=== PATIENT | female | born 1935 | race Caucasian/White ===

== ENCOUNTER 2017-01-09 23:27 | Inpatient (IN) | payer MEDICARE, OTHER ==
--- NOTE | ~2017-01-09 | HP ---
History And Physical [place] [id number] [facility] [place]. [address] NAME: RADHA ROOT : 37 STATUS : REG ER PAT#: [id number] AGE: 81 ADM/REG DATE : 01/09/17 MR#: [id number] REPORT SERV DATE: 01/10/17 DICTATED BY: LUCERO SEGOVIA DATE: 01/10/17 REPORT STATUS : Draft TRANSCRIBED BY: MODBandar DATE: 01/10/17 DATE OF ADMISSION: 01/09/2017 POINT OF ENTRY: [facility] Emergency Department CHIEF COMPLAINT: Anorexia and weakness. HISTORY OF PRESENT ILLNESS: The patient is a 81-year-old female with history of COPD on chronic 2 L by nasal cannula, as well as hypertension, gastroesophageal reflux disease, and chronic kidney stage 3, who is brought to the emergency room today by her family members given concern for anorexia, poor appetite, and resulting weakness. Majority of history is obtained from the patient's family members, as the patient currently reports that she has no complaints. The patient lives alone and family states they try to check on her at least on a daily basis by calling her. The last few days, they have been unable to reach her by phone so they decided to check on her in person this evening. When they checked on her they found her in her chair and so weak that she was unable to get out of her chair without assistance from her family members. They are very concerned that she has not been compliant with her medications and possibly even her home oxygen, as she has not been eating or drinking well at home. The patient did admit to her family members for the past few days. She has been having such difficulties with weakness that she has been having to crawl up and down the 3 small steps that are in her residence. When I directly asked patient if she had any complaints she denies any fevers, night sweats, chills, chest pain, changes in baseline, shortness of breath, or sputum production, abdominal pain, nausea, vomiting, diarrhea, constipation, dysphagia, melena, hematochezia or hemoptysis. She does endorse a poor appetite and is just not hungry. When asked specifically she denies any these are the reasons, as to why she is not eating much other than just a poor appetite, and not feeling hungry. She does endorse the weakness that the family is concerned about, but denies any other complaints. Initial evaluation in the emergency department for vital signs that are otherwise stable. ABG showed a well compensated chronic hypercarbic and hypoxic respiratory failure. Labs otherwise unremarkable, as well as a chest x-ray. She is subsequently admitted to the Hospital Service for further evaluation and management. REVIEW OF SYSTEMS: Comprehensive system otherwise negative unless listed in history of present illness. The family states that the patient has been very reluctant to move in with family members for increased assistance they report that they have been trying to address this issue for quite some time, but the patient has been reluctant. PREVIOUS MEDICAL HISTORY: 1. COPD, on chronic 2 L by nasal cannula. 2. Chronic hypoxic and hypercarbic respiratory failure. History And Physical [address] [address] NAME: RADHA ROOT : 37 STATUS : REG ER PAT#: [id number] AGE: 81 ADM/REG DATE : 01/09/17 MR#: [id number] REPORT SERV DATE: 01/10/17 DICTATED BY: LUCERO SEGOVIA DATE: 01/10/17 REPORT STATUS : Draft TRANSCRIBED BY: GUANAKITO DATE: 01/10/17 3. Gastroesophageal reflux disease. 4. Hypertension. 5. Chronic kidney stage 3. 6. Remote history of pericardial and pleural effusion. 7. Medication noncompliance. SURGICAL HISTORY: 1. Cholecystectomy. 2. Abdominal hysterectomy. 3. Pleural pericardial window for recurrent pericardial effusion. ALLERGIES: ACETAMINOPHEN, PROPOXYPHENE, AND METHADONE. HOME MEDICATIONS: The patient reports she takes no home medications. Although, family states that she has been prescribed medications in the past. She is noncompliant with them. SOCIAL HISTORY: She denies any tobacco, alcohol, or illicits. She is a former smoker, quit about 10 years ago. She currently lives alone and has been very reluctant to relinquish this independence. FAMILY MEDICAL HISTORY: Parents history is unknown. The family does report that some of her siblings are now diabetic and advanced years. LABS AND IMAGING: White count 6.9, hemoglobin 13.4, hematocrit 41.6, platelet count 308. Sodium is 139, potassium 4.7, chloride 91, carbon dioxide 39, BUN 25, creatinine 1.30, glucose is 129, calcium is 9.2, protein 7.6, albumin is 3.9, bilirubin is 0.9, ALT 12, AST 19, and alkaline phosphatase is 91. Troponin 0.02. Lactic acid 0.8. BNP is 463. Urinalysis, spec gravity is 1.021, trace ketones with small leukocyte esterase with 5 red blood cells and 5 white blood cells per high-powered field. ABG; pH is 7.35, pCO2 71, P02 is 67, bicarb is 38 saturating 91% on 2 L by nasal cannula. Chest x-ray per my review shows some mild intravascular volume overload with cardiomegaly, but otherwise no focal consolidation or infiltrate. PHYSICAL EXAMINATION: VITAL SIGNS: Temperature is 98.9 degrees Fahrenheit, pulse is 105, respirations 20 saturating 95% on 2L by nasal cannula. Blood pressure 147/69. GENERAL: Patient is awake, alert, in no acute distress. Resting comfortably in bed. She is an elderly chronically ill appearing female. Family is at bedside. HEENT: Atraumatic and normocephalic. Moist mucous membranes. Pupils equal, round, reactive to light and accommodation. Extraocular eye movements intact. No scleral icterus. NECK: Jugular venous distention. No carotid bruits. CARDIAC: Tachycardic rate, regular rhythm. No murmurs or gallops. Normal S1, S2. LUNGS: Decreased breath sounds in the bases and prolonged respiratory phase throughout, but otherwise no wheezes, rhonchi, or crackles appreciated. ABDOMEN: Soft, nontender, nondistended. Good bowel sounds. No rebound, guarding, or rigidity. History And Physical [address] [address] NAME: RADHA ROOT : 37 STATUS : REG ER PAT#: [id number] AGE: 81 ADM/REG DATE : 01/09/17 MR#: [id number] REPORT SERV DATE: 01/10/17 DICTATED BY: LUCERO SEGOVIA DATE: 01/10/17 REPORT STATUS : Draft TRANSCRIBED BY: GUANAKITO DATE: 01/10/17 EXTREMITIES: Warm and perfused with trace pedal edema. SKIN: Warm and dry. PSYCH: Affect appropriate. NEURO: Alert, oriented x3. Cranial nerves 2 through 12 grossly intact. Speech is normal. Gait is not assessed. The patient has diffuse global weakness with approximately 4/5 strength in all extremities. ASSESSMENT AND PLAN: The patient is a 81-year-old female, who is brought to the emergency department by her family for concerns of medication noncompliance, poor appetite, poor oral intake, and resulting weakness with failure to thrive. PROBLEM LIST: 1. Weakness with failure to thrive. 2. Anorexia. 3. Chronic hypoxic and hypercarbic respiratory failure. 4. COPD on 2 L by nasal cannula. 5. Chronic kidney stage 3. 6. Medication noncompliance. PLAN: 1. Weakness and failure to thrive. This is likely multifactorial from the patient's advancing age, multiple underlying medical comorbidities, as well as recent poor oral intake. We will admit patient to Hospitalist Service, consult Physical Therapy, nutrition as well as Case Management and social work, as I suspect the patient will likely need some type of detention placement in the future. Family states that they are trying to make arrangements for patient to move in with one of them and it appears that the patient is now becoming more receptive to this idea. We will check other potential etiologies of weakness such as thyroid function studies, CPK, prealbumin level. The patient received some IV fluids here in the ER, but we will hold off on further IV fluids given concern for some mild intravascular volume overload on exam as well as chest x-ray. 2. COPD, she appears to be well compensated. No acute exacerbation at this time. We will place her on some p.r.n. DuoNeb. 3. Chronic hypercarbic and hypoxic respiratory failure. Again per ABG appears to be well compensated. Place on DuoNeb as well as her home 2 L of nasal cannula. 4. Chronic kidney stage 3, per review of [facility] records her creatinine appears to be within recent baseline. Continue to monitor. 5. Mild intravascular volume overload. The patient does have some lower extremity edema as well as some vascular overload on chest x-ray and mildly elevated BNP level. She denies any history of congestive heart failure. The patient currently is in no distress. Therefore hold off on any diuretics at this time. 6. DVT prophylaxis, Lovenox subcu. 7. Code status, the patient wished to be full code. RAMYA/TREYL Lucero Hendrickson History And Physical [address] [place]. [address] NAME: RADHA ROOT : 37 STATUS : REG ER PAT#: [id number] AGE: 81 ADM/REG DATE : 01/09/17 MR#: [id number] REPORT SERV DATE: 01/10/17 DICTATED BY: LUCERO SEGOVIA DATE: 01/10/17 REPORT STATUS : Draft TRANSCRIBED BY: MODL DATE: 01/10/17 MD Jamila / [id number] CC: David Gongora M.D.
--- NOTE | ~2017-01-09 | DS ---
Discharge Summary [facility] [address] [place]. [address] NAME: RADHA ROOT : 37 STATUS : DIS IN PAT#: [id number] AGE: 81 ADM/REG DATE : 01/10/17 MR#: [id number] REPORT SERV DATE: 01/12/17 DICTATED BY: LUCERO MACIAS II DATE: 01/11/17 REPORT STATUS : Draft TRANSCRIBED BY: MODBandar DATE: 01/11/17 ADMISSION DATE: 01/10/2017 DISCHARGE DATE: 01/11/2017 DISCHARGE DIAGNOSES: 1. Generalized weakness and deconditioning. 2. Chronic hypoxic and hypercapnic respiratory failure. 3. Chronic obstructive pulmonary disease. 4. Acute on chronic diastolic congestive heart failure though mild. 5. Chronic kidney disease stage 3. 6. Medication noncompliance. 7. History of gastroesophageal reflux disease. 8. History of hypertension. BRIEF HISTORY OF PRESENT ILLNESS: The patient is a 81-year-old female with the above history who presented to [facility] due to anorexia and weakness. For detailed history and physical examination, please see Dr. Marino's note from 01/09/2017. HOSPITAL COURSE: On admission, the patient's labs were fairly unremarkable. Her creatinine was mildly elevated at 1.3 though she has CKD, reportedly stage III, however, after repeating this had come down to 0.98. The family is also concerned about malnutrition and anorexia. Currently, the patient is tolerating diet okay. She seems to be quite stubborn and refuses all medicines. Her family corroborates this and acknowledges she will not take any medicines. Her pre-albumin was 11.7, so she likely has some degree of moderate protein calorie malnutrition though her albumin is normal and no evidence of cachexia. Currently, she is in good spirits and was evaluated by PT, ambulated well without difficulty, and Physical Therapy did not think she would qualify for rehab. She is stable on 2 L nasal cannula, and her lungs are clear. She did have some edema on admission with elevated BNP of about 400. An echocardiogram showed mild diastolic dysfunction, otherwise preserved EF of 50% to 55% and some mild pulmonary tricuspid valve regurgitation. No Lasix was given. Her edema resolved. Currently, she is sitting in a chair without nasal cannula and no evidence of dyspnea. At this point, her daughter wants to take her home. The patient agrees. Daughter is a [employer]STRU[employer] and thinks she can handle her. Otherwise, no discharge medications though they were offered, and it was recommended the patient followup with her primary care physician though the daughter seems to doubt she will. GLENN/GUANAKITO Lucero Macias II, MD / [id number] CC: Discharge Summary [address] [address] NAME: RADHA ROOT : 37 STATUS : DIS IN PAT#: [id number] AGE: 81 ADM/REG DATE : 01/10/17 MR#: [id number] REPORT SERV DATE: 01/12/17 DICTATED BY: LUCERO MACIAS II DATE: 01/11/17 REPORT STATUS : Draft TRANSCRIBED BY: GUANAKITO DATE: 01/11/17 MD David Corbett II, M.D.
[2017-01-10 00:07] LABS: BASOPHILS 0.3 %; BASOPHILS ABSOLUTE 0.02 10/3/uL (0.0-0.16); EOSINOPHILS 0.1 %; EOSINOPHILS ABSOLUTE 0.01 10/3/uL (0.0-0.53); ER CBC TAT 0 Hrs 08 MinsNP; HEMATOCRIT 41.6 % (36.0-48.0); HEMOGLOBIN 13.4 g/dL (12.0-16.0); IMMATURE GRANULOCYTES 0.3 %; IMMATURE GRANULOCYTES ABSOLUTE 0.02 10/3/uL (0.0-0.11); LYMPHOCYTES 11.9 %; LYMPHOCYTES ABSOLUTE 0.82 10/3/uL (0.67-4.30); MANUAL DIFF NO %; MEAN CORPUS HGB CONC 32.2 g/dL (32.0-36.0); MEAN CORPUSCULAR VOLUME 99.3 fL (80-100); MEAN PLATELET VOLUME 9.3 fL (9.2-13.0); MONOCYTES 5.8 %; NEUTROPHILS 81.6 %; PLATELET COUNT 208 10/3/uL (150-400); RBC DISTRIBUTION WIDTH 13.2 % (12.0-16.0); RED CELL COUNT 4.19 10/6/uL (4.0-5.6); WHITE BLOOD CELLS 6.9 10/3/uL (4.5-10.5)
[2017-01-10 00:59] LABS: A/G RATIO 1.1 (0.7-1.9); ALBUMIN 3.9 G/DL (3.5-5.0); ALKALINE PHOSPHATASE 91 U/L (45-117); BUN (BLOOD UREA NITROGEN) 25 MG/DL (6-23); CALCIUM, SERUM 9.2 MG/DL (8.5-10.4); CHLORIDE, SERUM 91 MMOL/L (96-112); CO2 (CARBON DIOXIDE) 39 MMOL/L (24-34); GFR AFRICAN AMERICAN 45 ML/MIN (>=60); GFR NON AFRICAN AMERICAN 39 ML/MIN (>=60); GLOBULIN 3.7 G/DL (2.5-4.1); GLUCOSE, SERUM 129 MG/DL (60-99); POTASSIUM, SERUM 4.7 MMOL/L (3.5-5.3); SGOT(AST) 19 U/L (5-40); SGPT(ALT) 12 U/L (5-65); SODIUM, SERUM 139 MMOL/L (135-148); TOTAL BILIRUBIN 0.9 MG/DL (0-1.2); TOTAL PROTEIN 7.6 G/DL (6.0-8.5)
[2017-01-10 01:17] LABS: TROPONIN I 0.02 NG/ML (<0.05)
[2017-01-10 01:27] LABS: ALLENS TEST Pos; BE (BASE EXCESS) 10.2 MEQ/L (0 +/- 2.5); DEVICE NC; HCO3 (ACTUAL BICARBONATE) 38.4 MEQ/L (23-27); HEMOBLOGIN CONTENT 12.4 G/DL (12-16); INSTRUMENT SERIAL # 8087; METHEMOGLOBIN 0.2 % (0-3); O2 CONTENT 15.5 VOL% (18-24); OPERATOR ID 32193; PCO2 (CO2 TENSION) 71 MMHG (35-45); PO2 (O2 TENSION) 67 MMHG (79-93); SAMPLE Arterial; pH 7.35 (7.37-7.43)
[2017-01-10 01:53] LABS: LACTATE 0.8 MMOL/L (0.3-2.4)
[2017-01-10 04:21] LABS: ASCORBIC ACID (UR NOT ORDER) NEG (NEG); BILIRUBIN, URINE NEGATIVE (NEG); ER URINALYSIS TAT 0 Hrs 00 Mins; KETONE, URINE TRACE MG/DL (NEG); LEUKOCYTE ESTERASE(NOT OR SMALL (NEG); NITRITE (URINE) NEG (NEG); WBC (NOT ORDERED) (RFLEX) 5 (0-5)
[2017-01-10 11:32] LABS: FREE T4 0.96 NG/DL (0.76-1.46); PHOSPHORUS, SERUM 3.2 MG/DL (2.5-4.5); ULTRASENSITIVE TSH 0.416 MCIU/ML (0.358-3.740)
[2017-01-10 11:50] LABS: PREALBUMIN 11.7 MG/DL (17.0-43.0)
[2017-01-11 08:11] LABS: BASOPHILS 0.3 %; BASOPHILS ABSOLUTE 0.02 10/3/uL (0.0-0.16); EOSINOPHILS 2.4 %; EOSINOPHILS ABSOLUTE 0.16 10/3/uL (0.0-0.53); HEMATOCRIT 38.3 % (36.0-48.0); HEMOGLOBIN 12.1 g/dL (12.0-16.0); IMMATURE GRANULOCYTES 0.2 %; IMMATURE GRANULOCYTES ABSOLUTE 0.01 10/3/uL (0.0-0.11); LYMPHOCYTES 21.7 %; LYMPHOCYTES ABSOLUTE 1.43 10/3/uL (0.67-4.30); MEAN CORPUS HGB CONC 31.6 g/dL (32.0-36.0); MEAN CORPUSCULAR HEMOGLOB 31.6 pg (26.0-34.0); MEAN PLATELET VOLUME 8.9 fL (9.2-13.0); MONOCYTES 9.2 %; MONOCYTES ABSOLUTE 0.61 10/3/uL (0.21-1.20); NEUTROPHILS 66.2 %; NEUTROPHILS ABSOLUTE 4.37 10/3/uL (2.02-8.40); PLATELET COUNT 175 10/3/uL (150-400); RBC DISTRIBUTION WIDTH 13.1 % (12.0-16.0); RED CELL COUNT 3.83 10/6/uL (4.0-5.6); WHITE BLOOD CELLS 6.6 10/3/uL (4.5-10.5)
[2017-01-11 08:16] LABS: MANUAL DIFF NO %
[2017-01-11 08:29] LABS: BUN (BLOOD UREA NITROGEN) 24 MG/DL (6-23); CALCIUM, SERUM 8.9 MG/DL (8.5-10.4); CHLORIDE, SERUM 96 MMOL/L (96-112); CO2 (CARBON DIOXIDE) 38 MMOL/L (24-34); CREATININE 0.98 MG/DL (0.55-1.02); GFR AFRICAN AMERICAN 64 ML/MIN (>=60); GFR NON AFRICAN AMERICAN 55 ML/MIN (>=60); GLUCOSE, SERUM 89 MG/DL (60-99); POTASSIUM, SERUM 4.1 MMOL/L (3.5-5.3); SODIUM, SERUM 140 MMOL/L (135-148)
== END 2017-01-11 20:42 | disposition home health service (06) | DRG 640 ==
LOC: ER 23:27 → 4SO 01-10 06:05
PROVIDERS: Internal Medicine; Specialist
DX: E44.0 Moderate protein-calorie malnutrition (principal); I50.33 Acute on chronic diastolic (congestive) heart failure; J96.11 Chronic respiratory failure with hypoxia; Z99.81 Dependence on supplemental oxygen; J96.12 Chronic respiratory failure with hypercapnia; I12.9 Hypertensive chronic kidney disease with stage 1 through stage 4 chronic kidney disease, or unspecified chronic kidney disease; N18.3 Chronic kidney disease, stage 3 (moderate); K21.9 Gastro-esophageal reflux disease without esophagitis; R53.1 Weakness; Z88.8 Allergy status to other drugs, medicaments and biological substances; Z87.891 Personal history of nicotine dependence; Z91.14 Patient's other noncompliance with medication regimen; R62.7 Adult failure to thrive; Z68.20 Body mass index [BMI] 20.0-20.9, adult; J44.9 Chronic obstructive pulmonary disease, unspecified; E87.79 Other fluid overload
CPT/HCPCS: 36600; 71010; 80048; 80053; 81001; 82550; 82570; 82805; 83605; 83735; 83880; 83935; 84100; 84134; 84300; 84439; 84443; 84484; 85025; 87040; 87086; 93005; 93306; 94640; 97161-GP; 99285; G8978-CK-GP; G8979-CK-GP

== ENCOUNTER 2017-03-07 16:08 | Inpatient (IN) | payer MEDICARE ==
--- NOTE | ~2017-03-07 | HP ---
History And Physical [address] [address] NAME: RADHA ROOT : 37 STATUS : ADM IN [facility]#: [id number] AGE: 81 ADM/REG DATE : 03/07/17 MR#: [id number] REPORT SERV DATE: 03/08/17 DICTATED BY: JOSÉ LUIS ACOSTA DATE: 03/07/17 REPORT STATUS : Draft TRANSCRIBED BY: MODL DATE: 03/07/17 DATE OF ADMISSION: 03/07/2017 ADDENDUM: Now able to lay eyes on the patient. PHYSICAL EXAMINATION: GENERAL: Guarded HEENT: PERRLA. No scleral icterus. CARDIOVASCULAR: Tachycardic, but regular. RESPIRATORY: Bibasilar wheezes and coarse breath sounds. ABDOMEN: She does have some tenderness to palpation, more in her periumbilical region. No rebound tenderness. No peritoneal signs. EXTREMITIES: No edema. No ecchymosis. NEURO: She is GCS of 14. A and O x 2/4 that may be her baseline per her family. REVIEW OF SYSTEMS: Patient states she does have possibly a mild cough, unclear if she has any gurgling when she eats her food. No nausea. No vomiting. No diarrhea. No chest pain. No chest pressure. She is able to protect her airway and her mental status is more at her baseline, almost. As a result, we will not use BiPAP at this time. She may be living in the high 50s for her pCO2 at home. All questions were answered. It took over 60 minutes to do. Reference [employer]. WST/MODL José Luis Acosta DO / [id number] CC: MD David Dwyer M.D.
--- NOTE | ~2017-03-07 | DS ---
Discharge Summary [facility] [address] [place]. [address] NAME: RADHA ROOT : 37 STATUS : DIS IN PAT#: [id number] AGE: 81 ADM/REG DATE : 03/07/17 MR#: [id number] REPORT SERV DATE: 03/13/17 DICTATED BY: DATE: REPORT STATUS : Draft TRANSCRIBED BY: MODL DATE: 03/10/17 ADMISSION DATE: 03/07/2017 DISCHARGE DATE: 03/10/2017 The patient was admitted to [facility]. CONSULTANTS: Hospice. DISCHARGE DIAGNOSES: 1. End-stage chronic obstructive pulmonary disease. 2. Acute on chronic hypercapnic-hypoxemic respiratory failure. 3. Ongoing tobacco abuse. 4. Toxic metabolic encephalopathy due to hypercapnia. 5. Depression-started on Lexapro. 6. Possible underlying dementia-unable to make evaluation because patient refused to cooperate with mini-mental status exam. 7. Acute exacerbation of chronic obstructive pulmonary disease. 8. Diastolic congestive heart failure-chronic and compensated. 9. Chronic kidney disease, stage 2 versus 3. 10.Hypertension. 11.Gastroesophageal reflux disease. 12.Noncompliance and treatment refusal. IMAGIN. Brain CT without contrast, 03/07/2017. No evidence of acute intracranial pathology, age-appropriate cerebral volume loss with mild supratentorial white matter disease suggesting microangiopathy. 2. Portable chest on 03/07/2017, no acute cardiopulmonary process. 3. KUB 03/07/2017, nonobstructive bowel gas pattern and 0.5 cm right abdominal calcification, likely nephroliths. LABS: PH 7.31, pCO2 66, PO2 107, oxygen saturations 98% on 4 L. Creatinine 1.1 to 1.4. Electrolytes normal. Liver enzymes normal. Troponin x2 negative. TSH normal. Free T4 normal. Hemoglobin A1c 5.3, BNP 239, ammonia 20. Lactate negative. White blood cell count normal hemoglobin normal, platelets normal. Coagulation studies normal. Urinalysis negative for infection. Blood cultures x2 no growth. BRIEF HISTORY: For full details please see the previously dictated history of present illness by Dr. José Luis Pastrana. This is a 81-year-old white female brought to the emergency department by family with chief complaint of shortness of breath, anxiety, agitation, alternating with lethargy, and noncompliance with oxygen and medical therapies. The patient had a recent hospitalization here in December for similar events, and reportedly patient had not become any more cooperative after discharge in December. She had been moved to her son's house for closer supervision and was becoming increasingly angry with her son and daughter- in-law regarding some restrictions on her independence (they had recently asked her to stop driving). Labs in the emergency department were consistent with acute on chronic hypoxemic- Discharge Summary [place] [id number] [facility] [place]. [address] NAME: RADHA ROOT : 37 STATUS : DIS IN PAT#: [id number] AGE: 81 ADM/REG DATE : 03/07/17 MR#: [id number] REPORT SERV DATE: 03/13/17 DICTATED BY: DATE: REPORT STATUS : Draft TRANSCRIBED BY: MODBandar DATE: 03/10/17 hypercapnic respiratory failure felt due to exacerbation of end-stage COPD, and the patient was admitted to [address] [place] [address] for further management. The patient was somewhat cooperative on the first day of admission, utilized BiPAP for a brief period, wore her oxygen during the day, and participated with a few nebulizer treatments. We attempted to evaluate her for dementia with a mini-mental status exam, but the patient would not cooperate with testing. She was felt to have some component of depression and was started on low-dose Lexapro. Thereafter, she refused physical therapy, overnight pulse oximetry, room air ABGs to see if she would qualify for home BiPAP. She refused her air sampling and monitoring and was agitated and combative when staff asked her to put it back on. She would refuse respiratory treatments. Labs did not demonstrate any cause for acute agitation, and her daughter stated that this essentially has become her baseline over the past few years. It was explained to patient and family that treatment options are limited if she is unwilling to cooperate with her own care. Hospice was consulted and the patient was discharged home with [facility] on 03/10/2017 for increased support in the house. DISCHARGE DISPOSITION: To her son's house with hospice after a hospital bed has been arranged. The patient is instructed to wear her oxygen 4 L continuously (she has been noncompliant with this in the past), and to adhere to a cardiac diet. DISCHARGE MEDICATIONS: Include: 1. Bumex 0.5 mg p.o. daily. 2. Carvedilol 6.25 mg p.o. twice a day. 3. Lexapro 5 mg p.o. daily. 4. Transdermal nicotine patch over the counter. 5. Spiriva 18 mcg inhaled daily. 6. Symbicort 160/4.5 two puffs inhaled twice a day. 7. Albuterol MDI two puffs q.4 hours p.r.n. 30 minutes was spent in completion of the discharge summary. DICTATED BY: Sangeeta Beltran/GUANAKITO Josse Davis M.D. / [id number] CC: Josse Davis M.D. Discharge Summary [address] [address] NAME: RADHA ROOT : 37 STATUS : DIS IN PAT#: [id number] AGE: 81 ADM/REG DATE : 03/07/17 MR#: [id number] REPORT SERV DATE: 03/13/17 DICTATED BY: DATE: REPORT STATUS : Draft TRANSCRIBED BY: GUANAKITO DATE: 03/10/17 David Gongora M.D. [facility]
--- NOTE | ~2017-03-07 | HP ---
History And Physical [place] [address] [place]. [address] NAME: RADHA ROOT : 37 STATUS : ADM IN [facility]#: [id number] AGE: 81 ADM/REG DATE : 03/07/17 MR#: [id number] REPORT SERV DATE: 03/08/17 DICTATED BY: MARII ACOSTA DATE: 03/07/17 REPORT STATUS : Draft TRANSCRIBED BY: MODL DATE: 03/07/17 DATE OF ADMISSION: 03/07/2017 REASON FOR ADMISSION: Shortness of breath. PRIMARY CARE DOCTOR: Unclear. HISTORY OF PRESENT ILLNESS: This 81-year-old female with history of COPD with noncompliance to her nasal cannula and often times does not use it, hypertension, GERD, CKD 3 baseline likely 1.3, known history of chronic hypoxic hypercapnic respiratory failure unclear, pCO2 baseline, remote history of pericardial and pleural effusion, medication noncompliance. SURGICAL HISTORY: Cholecystectomy, abdominal hysterectomy, pleural pericardial window, recurrent pericardial effusion. The patient came in, being confused desaturating down to 60s and was placed on 4 L 100%. Getting a CT scan, I am not able to see the patient. ER ordered a CT scan and consulted us without a full report yet on the CT of the brain and will follow up with the patient once the patient is back in the room, but apparently per the family, the patient has been possibly endorsing fevers, unclear if she had chills, nausea, vomiting, diarrhea, chest pain, chest pressure, positive shortness of breath. Chest x-ray shows right middle lobe infiltration. She has not been using her inhalers nor oxygen recently, unclear if patient has any orthopnea, has a blood pressure of 184. ABG are 7.31/66/73 on 28%, unclear what her pCO2 baseline is. PAST MEDICAL HISTORY: See above. PAST SURGICAL HISTORY: See above. ALLERGIES: TYLENOL, PROPOXYPHENE WELL METHADONE. HOME MEDICATIONS: See MAR. Continue what is relevant, pharmacy to do. SOCIAL HISTORY: Used to be a former smoker. Now, she is smoking again, half pack to 2 packs a day. No alcohol. No drug use supposedly. FAMILY HISTORY: Hypertension at least one parent. REVIEW OF SYSTEMS: Review of systems done, see HPI. Otherwise, negative. I will have to go and see the patient again and make an addendum on the physical exam. The patient is not in the room, ER ordered a CT scan and then consulted me without getting full result before asking for admission. LABORATORY DATA: White count 6, hemoglobin 13, 230,000 platelets. Troponin negative. BNP History And Physical [address] [place]. [address] NAME: RADHA ROOT : 37 STATUS : ADM IN [facility]#: [id number] AGE: 81 ADM/REG DATE : 03/07/17 MR#: [id number] REPORT SERV DATE: 03/08/17 DICTATED BY: MARII ACOSTA DATE: 03/07/17 REPORT STATUS : Draft TRANSCRIBED BY: GUANAKITO DATE: 03/07/17 240, 4.3 potassium, 32 bicarb, 1.11 creatinine, 14 BUN, 141 sodium, 134 sugar. ABG see above. Chest x-ray see above. Also has an EKG that shows sinus tachycardia. No ischemic ST-T changes. ASSESSMENT/PLAN: 1. Encephalopathy per history. 2. Acute hypoxic, hypercapnic respiratory failure on chronic. 3. Chronic obstructive pulmonary disease, acute exacerbation 3/3 GOLD criteria. 4. She can be volume overload. 5. Hypertensive urgency. PLAN: Admit this patient. See all my orders including blood pressure control, mean arterial pressure reduction of 25% in the 1st 6 hours. Spiriva, Brovana, budesonide, Levaquin, Flagyl for possible aspiration. Place on BiPAP unless patient cannot safely control her airway. We will get an ABG in the morning. Bumex for diuresis for volume overload. Solu- Medrol. In addition for COPD, we will also get urine drug screen. Patient may have had some personality changes recently, maybe frontal lobe dementia, we will evaluate CT of the brain. If she is incredibly anxious or has any psychiatric condition after her medical conditions are properly optimized, could consider possible psychiatric referral see rest of my orders. All questions were answered. It took well over 60 minutes to do. Again I will make an addendum on physical exam once I see the patient. VALDEZ/TREYL Marii Acosta DO / [id number] CC: MD David Dwyer M.D.
[2017-03-07 16:12] LABS: BASOPHILS 0.8 %; BASOPHILS ABSOLUTE 0.05 10/3/uL (0.0-0.16); EOSINOPHILS 6.5 %; EOSINOPHILS ABSOLUTE 0.39 10/3/uL (0.0-0.53); HEMATOCRIT 40.3 % (36.0-48.0); IMMATURE GRANULOCYTES 0.2 %; IMMATURE GRANULOCYTES ABSOLUTE 0.01 10/3/uL (0.0-0.11); LYMPHOCYTES 26.1 %; LYMPHOCYTES ABSOLUTE 1.56 10/3/uL (0.67-4.30); MEAN CORPUS HGB CONC 32.3 g/dL (32.0-36.0); MEAN CORPUSCULAR HEMOGLOB 32.4 pg (26.0-34.0); MEAN CORPUSCULAR VOLUME 100.5 fL (80-100); MEAN PLATELET VOLUME 9.2 fL (9.2-13.0); MONOCYTES 8.5 %; MONOCYTES ABSOLUTE 0.51 10/3/uL (0.21-1.20); NEUTROPHILS 57.9 %; NEUTROPHILS ABSOLUTE 3.45 10/3/uL (2.02-8.40); RBC DISTRIBUTION WIDTH 13.6 % (12.0-16.0); RED CELL COUNT 4.01 10/6/uL (4.0-5.6)
[2017-03-07 16:13] LABS: MANUAL DIFF NO %; PLATELET COUNT 230 10/3/uL (150-400)
[2017-03-07] MEDS ORDERED: SYMBICORT 160/41 INH INH (16:14)
[2017-03-07] MEDS ORDERED: SEROQUEL25 PO (16:15)
[2017-03-07 16:20] LABS: INTERNATIONAL NORMAL RATI 1.2 UNITS (-); PROTIME (NOT ORD) 15.4 SEC (12.0-14.5)
[2017-03-07 16:30] LABS: CHEST PAIN PROFILE TAT 0 Hrs 24 Mins; CHLORIDE, SERUM 103 MMOL/L (96-112); CO2 (CARBON DIOXIDE) 38 MMOL/L (24-34); CREATININE 1.11 MG/DL (0.55-1.02); GFR AFRICAN AMERICAN 55 ML/MIN (>=60); GFR NON AFRICAN AMERICAN 47 ML/MIN (>=60); POTASSIUM, SERUM 4.3 MMOL/L (3.5-5.3); SODIUM, SERUM 141 MMOL/L (135-148); TROPONIN I <0.02 NG/ML (<0.05)
[2017-03-07 16:31] LABS: BUN (BLOOD UREA NITROGEN) 14 MG/DL (6-23); GLUCOSE, SERUM 134 MG/DL (60-99)
[2017-03-07 16:46] LABS: BE (BASE EXCESS) 4.5 MEQ/L (0 +/- 2.5); CARBOXYHEMOGLOBIN 3.3 % (0-3); DEVICE NC; HCO3 (ACTUAL BICARBONATE) 32.7 MEQ/L (23-27); HEMOBLOGIN CONTENT 13.3 G/DL (12-16); INSTRUMENT SERIAL # 8087; METHEMOGLOBIN 0.1 % (0-3); PCO2 (CO2 TENSION) 66 MMHG (35-45); PO2 (O2 TENSION) 73 MMHG (79-93); SAMPLE Arterial; pH 7.31 (7.37-7.43)
[2017-03-07 16:47] LABS: ALLENS TEST Pos
[2017-03-07 17:15] LABS: ASCORBIC ACID (UR NOT ORDER) NEG (NEG); BILIRUBIN, URINE NEGATIVE (NEG); ER URINALYSIS TAT 0 Hrs 05 Mins; KETONE, URINE NEGATIVE (NEG); LEUKOCYTE ESTERASE(NOT OR SMALL (NEG); NITRITE (URINE) NEG (NEG); WBC (NOT ORDERED) (RFLEX) 3 (0-5)
[2017-03-07 22:26] LABS: ACETAMINOPHEN LEVEL (TYLENOL) < 2.0 MCG/ML (10.0-20.0); ALCOHOL < 10 MG/DL (0); PHOSPHORUS, SERUM 3.5 MG/DL (2.5-4.5); SALICYLATE < 1.7 MG/DL (-)
[2017-03-07 22:43] LABS: PROCALCITONIN <0.05 ng/mL (<0.5)
[2017-03-08 00:57] LABS: AMPHETAMINES (NOT ORD) NEG (NEG); BARBITURATES (NOT ORDERED NEG (NEG); BENZODIAZEPINES (NOT ORD) NEG (NEG); CANNABINOIDS (THC) NEG (NEG); COCAINE (NOT ORDERED) NEG (NEG); OPIATES NEG (NEG); PHENCYCLIDINE(PCP) NEG (NEG); TRICYCLICS NEG (NEG)
[2017-03-08 04:30] LABS: ASCORBIC ACID (UR NOT ORDER) NEG (NEG); BILIRUBIN, URINE NEGATIVE (NEG); KETONE, URINE NEGATIVE (NEG); LEUKOCYTE ESTERASE(NOT OR NEG (NEG); WBC (NOT ORDERED) (RFLEX) 3 (0-5)
[2017-03-08 06:22] LABS: ALLENS TEST Pos; CARBOXYHEMOGLOBIN 1.6 % (0-3); DEVICE NC; HCO3 (ACTUAL BICARBONATE) 31.9 MEQ/L (23-27); HEMOBLOGIN CONTENT 13.9 G/DL (12-16); INSTRUMENT SERIAL # 8083; METHEMOGLOBIN 0.2 % (0-3); O2 CONTENT 18.8 VOL% (18-24); OPERATOR ID 18978; PCO2 (CO2 TENSION) 69 MMHG (35-45); PO2 (O2 TENSION) 107 MMHG (79-93); SAMPLE Arterial; pH 7.28 (7.37-7.43)
[2017-03-08 07:07] LABS: BASOPHILS 0.3 %; BASOPHILS ABSOLUTE 0.01 10/3/uL (0.0-0.16); EOSINOPHILS 0 %; HEMATOCRIT 42.4 % (36.0-48.0); HEMOGLOBIN 13.4 g/dL (12.0-16.0); IMMATURE GRANULOCYTES 0.3 %; IMMATURE GRANULOCYTES ABSOLUTE 0.01 10/3/uL (0.0-0.11); LYMPHOCYTES 16.4 %; LYMPHOCYTES ABSOLUTE 0.51 10/3/uL (0.67-4.30); MEAN CORPUS HGB CONC 31.6 g/dL (32.0-36.0); MEAN CORPUSCULAR HEMOGLOB 31.8 pg (26.0-34.0); MEAN CORPUSCULAR VOLUME 100.7 fL (80-100); MEAN PLATELET VOLUME 8.9 fL (9.2-13.0); MONOCYTES 0.3 %; MONOCYTES ABSOLUTE 0.01 10/3/uL (0.21-1.20); NEUTROPHILS 82.7 %; NEUTROPHILS ABSOLUTE 2.57 10/3/uL (2.02-8.40); PLATELET COUNT 215 10/3/uL (150-400); RBC DISTRIBUTION WIDTH 13.5 % (12.0-16.0); RED CELL COUNT 4.21 10/6/uL (4.0-5.6)
[2017-03-08 07:08] LABS: MANUAL DIFF NO %; WHITE BLOOD CELLS 3.1 10/3/uL (4.5-10.5)
[2017-03-08 07:26] LABS: BUN (BLOOD UREA NITROGEN) 13 MG/DL (6-23); CHLORIDE, SERUM 100 MMOL/L (96-112); CO2 (CARBON DIOXIDE) 40 MMOL/L (24-34); CREATININE 1.18 MG/DL (0.55-1.02); GFR AFRICAN AMERICAN 51 ML/MIN (>=60); GFR NON AFRICAN AMERICAN 44 ML/MIN (>=60); PHOSPHORUS, SERUM 3.5 MG/DL (2.5-4.5); POTASSIUM, SERUM 4.8 MMOL/L (3.5-5.3); SODIUM, SERUM 139 MMOL/L (135-148)
[2017-03-08 07:27] LABS: GLUCOSE, SERUM 176 MG/DL (60-99)
[2017-03-08 14:44] LABS: GLYCOHEMOGLOBIN (HbA1c) 5.3 % (4.7-6.1)
[2017-03-09 07:02] LABS: BASOPHILS 0 %; EOSINOPHILS 0 %; HEMATOCRIT 39.8 % (36.0-48.0); HEMOGLOBIN 12.6 g/dL (12.0-16.0); IMMATURE GRANULOCYTES 0.1 %; IMMATURE GRANULOCYTES ABSOLUTE 0.01 10/3/uL (0.0-0.11); LYMPHOCYTES 12.2 %; LYMPHOCYTES ABSOLUTE 1.13 10/3/uL (0.67-4.30); MEAN CORPUS HGB CONC 31.7 g/dL (32.0-36.0); MEAN CORPUSCULAR HEMOGLOB 31.7 pg (26.0-34.0); MEAN CORPUSCULAR VOLUME 100.3 fL (80-100); MEAN PLATELET VOLUME 9.2 fL (9.2-13.0); MONOCYTES 4.8 %; MONOCYTES ABSOLUTE 0.45 10/3/uL (0.21-1.20); NEUTROPHILS 82.9 %; NEUTROPHILS ABSOLUTE 7.71 10/3/uL (2.02-8.40); PLATELET COUNT 224 10/3/uL (150-400); RBC DISTRIBUTION WIDTH 12.9 % (12.0-16.0); RED CELL COUNT 3.97 10/6/uL (4.0-5.6)
[2017-03-09 07:04] LABS: MANUAL DIFF NO %; WHITE BLOOD CELLS 9.3 10/3/uL (4.5-10.5)
[2017-03-09 07:23] LABS: BUN (BLOOD UREA NITROGEN) 28 MG/DL (6-23); CALCIUM, SERUM 9.1 MG/DL (8.5-10.4); CHLORIDE, SERUM 95 MMOL/L (96-112); CO2 (CARBON DIOXIDE) 40 MMOL/L (24-34); CREATININE 1.39 MG/DL (0.55-1.02); GFR AFRICAN AMERICAN 42 ML/MIN (>=60); GFR NON AFRICAN AMERICAN 36 ML/MIN (>=60); GLUCOSE, SERUM 117 MG/DL (60-99); PHOSPHORUS, SERUM 4.1 MG/DL (2.5-4.5); POTASSIUM, SERUM 4.4 MMOL/L (3.5-5.3); SODIUM, SERUM 138 MMOL/L (135-148)
[2017-03-10 07:38] LABS: BASOPHILS 0.2 %; BASOPHILS ABSOLUTE 0.01 10/3/uL (0.0-0.16); EOSINOPHILS 1.9 %; EOSINOPHILS ABSOLUTE 0.12 10/3/uL (0.0-0.53); HEMATOCRIT 39.4 % (36.0-48.0); HEMOGLOBIN 12.8 g/dL (12.0-16.0); IMMATURE GRANULOCYTES 0.2 %; IMMATURE GRANULOCYTES ABSOLUTE 0.01 10/3/uL (0.0-0.11); LYMPHOCYTES ABSOLUTE 1.61 10/3/uL (0.67-4.30); MEAN CORPUS HGB CONC 32.5 g/dL (32.0-36.0); MEAN CORPUSCULAR VOLUME 98.5 fL (80-100); MEAN PLATELET VOLUME 8.9 fL (9.2-13.0); MONOCYTES 7.3 %; MONOCYTES ABSOLUTE 0.47 10/3/uL (0.21-1.20); NEUTROPHILS 65.4 %; NEUTROPHILS ABSOLUTE 4.22 10/3/uL (2.02-8.40); PLATELET COUNT 217 10/3/uL (150-400); WHITE BLOOD CELLS 6.4 10/3/uL (4.5-10.5)
[2017-03-10 07:39] LABS: MANUAL DIFF NO %
[2017-03-10 07:55] LABS: CHLORIDE, SERUM 96 MMOL/L (96-112); CREATININE 1.29 MG/DL (0.55-1.02); GFR AFRICAN AMERICAN 46 ML/MIN (>=60); GFR NON AFRICAN AMERICAN 39 ML/MIN (>=60); POTASSIUM, SERUM 3.9 MMOL/L (3.5-5.3); SODIUM, SERUM 138 MMOL/L (135-148)
[2017-03-10 07:56] LABS: BUN (BLOOD UREA NITROGEN) 32 MG/DL (6-23); CO2 (CARBON DIOXIDE) 40 MMOL/L (24-34); GLUCOSE, SERUM 92 MG/DL (60-99); PHOSPHORUS, SERUM 1.5 MG/DL (2.5-4.5)
[2017-03-10] MEDS ORDERED: BUM5 PO (17:11)
[2017-03-10] MEDS ORDERED: COREG6 PO (17:11)
[2017-03-10] MEDS ORDERED: HABIT14 TOP (17:13)
[2017-03-10] MEDS ORDERED: LEXAPRO5 MG PO (17:13)
[2017-03-10] MEDS ORDERED: SPIRIVA INH (17:15)
[2017-03-10] MEDS ORDERED: PROVHFA INH (17:16)
== END 2017-03-10 21:36 | disposition hospice, home (50) | DRG 189 ==
LOC: ER 16:08 → 7NO 19:42
PROVIDERS: Emergency Medicine; Hospitalist; Internal Medicine
DX: J96.22 Acute and chronic respiratory failure with hypercapnia (principal); G93.40 Encephalopathy, unspecified; J44.1 Chronic obstructive pulmonary disease with (acute) exacerbation; I13.0 Hypertensive heart and chronic kidney disease with heart failure and stage 1 through stage 4 chronic kidney disease, or unspecified chronic kidney disease; N18.3 Chronic kidney disease, stage 3 (moderate); I50.32 Chronic diastolic (congestive) heart failure; J96.21 Acute and chronic respiratory failure with hypoxia; I16.0 Hypertensive urgency; K21.9 Gastro-esophageal reflux disease without esophagitis; F17.210 Nicotine dependence, cigarettes, uncomplicated; F32.9 Major depressive disorder, single episode, unspecified
CPT/HCPCS: 36600; 70450; 71010; 74000; 80048; 80305; 80307; 81001; 82140; 82805; 82962; 83036; 83605; 83735; 83880; 84100; 84145; 84443; 84484; 85025; 85610; 85730; 87040; 87086; 87449; 92610-GN; 93005; 94640; 97161-GP; 99291; A9270-GY; G8978-CJ-GP; G8979-CH-GP; G8996-CI-GN; G8997-CI-GN; G8998-CI-GN; J0330; J1956; J2930